=== PATIENT | female | born 1970 | race Caucasian/White ===

== ENCOUNTER 2017-05-09 12:33 | Outpatient (CLI) | payer OTHER ==
--- NOTE | 2017-05-09 15:03 | Diagnostic Imaging Report ---
MOLINA MACIAS - SHARAD [facility] [place] [facility] [id number] [facility] [address], [place]. [address] Report Submission Date: May 09, 2017 1:37:02 PM CDT Patient Study Name: YAW MATHIS Date: May 09, 2017 12:41:13 PM CDT Modality Type: CR Gender: F Description: CHEST : 68 Institution: [facility] [place] [facility] Physician: MOLINA MACIAS Examination: PA and lateral chest. History: Evaluate lung august. Findings: PA lateral chest demonstrate a normal cardiac and mediastinal silhouette. No focal infiltrate. No effusion. No blunting of the costophrenic margins. Osseous structures are appropriate for age. Impression: No acute pulmonary process. Electronically signed on May 09, 2017 1:37:02 PM CDT by: Manuel ONEIL
== END 2017-05-09 12:34 ==
LOC: RAD 12:33
PROVIDERS: ATTEND Family Medicine
DX: R07.89 Other chest pain (principal)
CPT/HCPCS: 71020